=== PATIENT | male | born 1990 | race Caucasian/White ===

== ENCOUNTER 2020-12-09 18:15 | Emergency (ER) | payer OTHER, SELFPAY ==
[2020-12-09 18:43] LABS: Urine Blood Negative (Negative); Urine Glucose Negative (Negative); Urine Protein Negative (Negative); Urine pH 6.5 (5.0-7.0)
[2020-12-09 19:02] LABS: Absolute Lymphocytes (CBC) 3.1 K/uL (0.7-4.9); Basophils % 0.4 % (0-1.3); Hematocrit 43.9 % (39.6-49.0); Lymphocytes % 33.6 % (15.3-44.8); RBC Red Blood Cell Count 5.15 M/uL (4.33-5.43)
[2020-12-09 19:22] LABS: Albumin 4.7 g/dL (3.4-5.0); Bilirubin Direct 0.1 mg/dL (0-0.2); Bilirubin Total 0.5 mg/dL (0.2-1.0); Potassium 3.3 mmol/L (3.5-5.1); Protein, Total 8.5 g/dL (6.4-8.2)
[2020-12-09] MEDS ORDERED: ONDANSETRON 4 MG/2 ML VIAL ONE (19:25)
[2020-12-09] MEDS ORDERED: MORPHINE 4 MG/ML SYR ONE (19:25)
[2020-12-09 19:51] LABS: Urine Bacteria <20 /HPF (NONE SEEN); Urine RBC <5 /HPF (NONE SEEN)
--- NOTE | 2020-12-09 23:25 | ER ---
[facility] Name: Nicolas Moreno Age: 30 yrs Sex: Male : 1990 Arrival Date: 12/09/2020 Time: 18:19 Bed 25 Private MD: Diagnosis: Right lower quadrant abdominal tenderness Presentation: 12/09 18:25 Chief complaint: Patient states: RLQ abdominal pain x 4 days. Pt stated its worse with kg urination. Denies any N/V/D. Coronavirus screen: Vaccine status: Patient reports receiving the 2nd dose of the covid vaccine. Date October 30, 2020 Moderna Patient reports receiving the 1st dose of the Covid vaccine. Date October 09, 2020 Modern. Coronavirus screen: At this time, the client does not indicate any symptoms associated with coronavirus-19. Ebola Screen: Patient negative for fever greater than or equal to 101.5 degrees Fahrenheit, and additional compatible Ebola Virus Disease symptoms Patient denies exposure to infectious person. Patient denies travel to an Ebola-affected area in the 21 days before illness onset. Initial Sepsis Screen: Does the patient meet any 2 criteria? No. Patient's initial sepsis screen is negative. Does the patient have a suspected source of infection? No. Patient's initial sepsis screen is negative. Risk Assessment: Do you want to hurt yourself or someone else? Patient reports no desire to harm self or others. Onset of symptoms was December 05, 2020. 18:25 Method Of Arrival: Ambulatory kg 18:25 Acuity: GIANNA 3 kg Triage Assessment: 18:28 General: Appears in no apparent distress. Behavior is calm, cooperative, appropriate kg for age, quiet. Pain: Complains of pain in right lower quadrant Pain currently is 2 out of 10 on a pain scale. at worst was 6 out of 10 on a pain scale. level that patient reports is acceptable is 3 out of 10 on a pain scale. Quality of pain is described as aching, stabbing. GI: Reports lower abdominal pain. : Reports pain. Historical: - Allergies: 18:28 No Known Allergies; kg - Home Meds: 18:28 None [Active]; kg - PMHx: 18:28 None; kg - PSHx: 18:28 None; kg - Immunization history:: Adult Immunizations up to date, Client reports receiving the 2nd dose of the Covid vaccine, Date received: October 30, 2020 [facility] Client reports receiving the 1st dose of the Covid vaccine, October 09, 2020 [facility]. - Social history:: Smoking status: Patient denies any tobacco usage or history of. Screenin:46 Abuse screen: Denies threats or abuse. Nutritional screening: No deficits noted. oh Tuberculosis screening: No symptoms or risk factors identified. Fall Risk None identified. Assessment: 18:45 General: Appears comfortable, Behavior is calm, cooperative, appropriate for age, oh Reports RLQ abdominal pain, denies n/v. GI: Bowel sounds present X 4 quads. Abd is soft Reports lower abdominal pain. Vital Signs: 18:25 BP 148 / 97; Pulse 91; Resp 18; Temp 99.0(O); Pulse Ox 100% on R/A; Weight 73.94 kg kg (R); Height 5 ft. 11 in. (180.34 cm) (R); Pain 2/10; 18:46 BP 149 / 99; Pulse 99; Resp 19; Pulse Ox 99% ; oh 18:25 Body Mass Index 22.73 (73.94 kg, 180.34 cm) kg ED Course: 18:19 Patient arrived in ED. mr 18:27 Triage completed. kg 18:35 Manuel Reynoso PA is PHCP. jr8 18:35 Rafa Nunez MD is Attending Physician. jr8 18:36 Rebecca Smart, YOUNG is Primary Nurse. oh 18:46 Bed in low position. Call light in reach. oh 18:46 Arm band placed on right wrist. oh 18:49 Inserted saline lock: 20 gauge in left antecubital area, using aseptic technique. Blood oh collected. 19:07 Urine Microscopic Only Sent. oh 22:24 CT Abd/Pelvis - PO and IV Contrast In Process Unspecified. EDMS Administered Medications: 19:02 Drug: Zofran (Ondansetron) 4 mg Route: IVP; Site: left antecubital; oh 19:11 Not Given (Patient Refused): morphine 4 mg IVP once; RASS on ADMIN: Combtv4, Very cw2 Agttd3, Agttd2, Rstlss1, AlertClm0, Drwsy-1, Lt Sdtn-2, Mod Sdtn-3, Dp Sdtn-4, UnArsble-5 Outcome: 23:25 Discharge ordered by MD. allison 12/10 00:37 Patient left the ED. cw2 Signatures: Dispatcher [employer] ALEXIA Nia Gong mr AngelesManuel PA PA jr8 Danyelle Ford, RN RN Jc Gross RN RN cw2 Rebecca Smart RN RN oh Corrections: (The following items were deleted from the chart) 12/09 19:04 19:02 morphine 4 mg IVP in left antecubital oh oh
--- NOTE | 2020-12-09 23:26 | EDPHYS ---
Physician Documentation [facility] Name: Nicolas Moreno Age: 30 yrs Sex: Male : 1990 Arrival Date: 12/09/2020 Time: 18:19 Bed 25 Private MD: ED Physician Rafa Nunez HPI: 12/09 18:58 This 30 yrs old Male presents to ER via Ambulatory with complaints of jr8 Abdominal Pain. 19:08 The patient presents with abdominal pain right lower quadrant. Onset: The jr8 symptoms/episode began/occurred acutely, today. The symptoms do not radiate. Associated signs and symptoms: none. The symptoms are described as stabbing. Modifying factors: The symptoms are alleviated by nothing, the symptoms are aggravated by nothing. Severity of pain: At its worst the pain was moderate in the emergency department the pain is unchanged. The patient has not experienced similar symptoms in the past. The patient has not recently seen a physician. Historical: - Allergies: 18:28 No Known Allergies; kg - Home Meds: 18:28 None [Active]; kg - PMHx: 18:28 None; kg - PSHx: 18:28 None; kg - Immunization history:: Adult Immunizations up to date, Client reports receiving the 2nd dose of the Covid vaccine, Date received: October 30, 2020 [facility] Client reports receiving the 1st dose of the Covid vaccine, October 09, 2020 [facility]. - Social history:: Smoking status: Patient denies any tobacco usage or history of. ROS: 19:08 Eyes: Negative for injury, pain, redness, and discharge, ENT: Negative for injury, jr8 pain, and discharge, Neck: Negative for injury, pain, and swelling, Cardiovascular: Negative for chest pain, palpitations, and edema, Respiratory: Negative for shortness of breath, cough, wheezing, and pleuritic chest pain, Back: Negative for injury and pain, MS/Extremity: Negative for injury and deformity, Skin: Negative for injury, rash, and discoloration, Neuro: Negative for headache, weakness, numbness, tingling, and seizure. 19:08 Abdomen/GI: Positive for abdominal pain, Negative for nausea, vomiting, and diarrhea. Exam: 19:08 Constitutional: This is a well developed, well nourished patient who is awake, alert, jr8 and in no acute distress. Cardiovascular: Regular rate and rhythm with a normal S1 and S2. No gallops, murmurs, or rubs. Normal PMI, no JVD. No pulse deficits. Respiratory: Lungs have equal breath sounds bilaterally, clear to auscultation and percussion. No rales, rhonchi or wheezes noted. No increased work of breathing, no retractions or nasal flaring. Back: No spinal tenderness. No costovertebral tenderness. Full range of motion. Skin: Warm, dry with normal turgor. Normal color with no rashes, no lesions, and no evidence of cellulitis. MS/ Extremity: Pulses equal, no cyanosis. Neurovascular intact. Full, normal range of motion. Neuro: Awake and alert, GCS 15, oriented to person, place, time, and situation. Cranial nerves II-XII grossly intact. Motor strength 5/5 in all extremities. Sensory grossly intact. 19:08 Abdomen/GI: Inspection: abdomen appears normal, Bowel sounds: active, all quadrants, Palpation: soft, in all quadrants, moderate abdominal tenderness, in the right lower quadrant, mass, is not appreciated, rebound tenderness, is not appreciated, voluntary guarding, is not appreciated, involuntary guarding, is not appreciated, no appreciated organomegaly, Indicators: McBurney's point is tender, Ruiz's sign is negative, Rovsing's sign is negative, Obturator sign is negative, Psoas sign is negative, Liver: tenderness, is not appreciated. Vital Signs: 18:25 BP 148 / 97; Pulse 91; Resp 18; Temp 99.0(O); Pulse Ox 100% on R/A; Weight 73.94 kg kg (R); Height 5 ft. 11 in. (180.34 cm) (R); Pain 2/10; 18:46 BP 149 / 99; Pulse 99; Resp 19; Pulse Ox 99% ; oh 18:25 Body Mass Index 22.73 (73.94 kg, 180.34 cm) kg MDM: 18:35 Patient medically screened. jr8 23:24 Data reviewed: vital signs, nurses notes, lab test result(s), radiologic studies, CT jr8 scan. Data interpreted: Pulse oximetry: on room air is 99 %. Interpretation: normal. Counseling: I had a detailed discussion with the patient and/or guardian regarding: the historical points, exam findings, and any diagnostic results supporting the discharge/admit diagnosis, lab results, radiology results, the need for outpatient follow up, a family practitioner, to return to the emergency department if symptoms worsen or persist or if there are any questions or concerns that arise at home. Special discussion: Based on the patient's Hx, exam, and Dx evaluation, there is no indication for emergent surgery or inpatient Tx. It is understood by the patient/guardian that if the Sx's persist or worsen they need to return immediately for re-evaluation. 12/09 18:35 Order name: Basic Metabolic Panel; Complete Time: 20:05 12/09 18:35 Order name: CBC with Diff; Complete Time: 19:12/09 18:35 Order name: Hepatic Function; Complete Time: 20:12/09 18:35 Order name: Lipase; Complete Time: 20:12/09 18:35 Order name: Urine Microscopic Only; Complete Time: 20: [facility] 12/09 18:42 Order name: Urine Dipstick-Ancillary; Complete Time: 18:49 EDTX 12/09 18:35 Order name: IV Saline Lock; Complete Time: 19:12/09 18:35 Order name: Labs collected and sent; Complete Time: 19:12/09 18:35 Order name: Urine Dipstick-Ancillary (obtain specimen); Complete Time: 18:44 8 12/09 18:54 Order name: CT Abd/Pelvis - PO and IV Contrast jr8 Administered Medications: 19:02 Drug: Zofran (Ondansetron) 4 mg Route: IVP; Site: left antecubital; oh 19:11 Not Given (Patient Refused): morphine 4 mg IVP once; RASS on ADMIN: Combtv4, Very cw2 Agttd3, Agttd2, Rstlss1, AlertClm0, Drwsy-1, Lt Sdtn-2, Mod Sdtn-3, Dp Sdtn-4, UnArsble-5 Disposition: 12/10 11:18 Co-signature as Attending Physician, Rafa Nunez MD I agree with the assessment and kdr plan of care. Disposition Summary: 12/09/20 23:25 Discharge Ordered Location: Home jr8 Problem: new jr8 Symptoms: have improved jr8 Condition: Stable jr8 Diagnosis - Right lower quadrant abdominal tenderness jr8 Followup: jr8 - With: Private Physician - When: 2 - 3 days - Reason: Recheck today's complaints, Continuance of care, Re-evaluation by your physician Discharge Instructions: - Discharge Summary Sheet jr8 - Abdominal Pain, Adult jr8 Forms: - Medication Reconciliation Form jr8 - Thank You Letter jr8 - Antibiotic Education jr8 - Prescription Opioid Use jr8 Prescriptions: - Zofran 4 mg Oral Tablet - take 1 tablet by ORAL route every 12 hours As needed; 20 tablet; Refills: 0, jr8 Product Selection Permitted - dicyclomine 10 mg Oral Capsule - take 1 capsule by ORAL route 3 times per day As needed; 20 capsule; Refills: 0, jr8 Product Selection Permitted Signatures: Dispatcher [employer] Rafa Parish MD MD kdr Roszak, Josh, PA PA jr8 Danyelle Ford RN RN Rebecca Smart RN RN ma Jc Shabazz RN cw2
[2020-12-10 00:47] VITALS: TEMP 99
[2020-12-10 00:48] VITALS: BP 149/99; O2SAT 99
--- NOTE | 2020-12-10 11:34 | RAD REPORT ---
EXAM DESCRIPTION: CT - Abdomen Pelvis W Contrast - 12/10/2020 6:27 am CLINICAL HISTORY: 30 years Male r/o appy; Abd pain TECHNIQUE: Contiguous axial images obtained through the abdomen and pelvis following both oral and i ntravenous contrast administration. Coronal and sagittal reformatted images provided. This CT exam was performed according to our departmental dose-optimization program, which includes on e or more of the following dose reduction techniques: automated exposure control, adjustment of the m A and/or kV according to patient size, and/or use of iterative reconstruction technique. COMPARISON: No prior exams provided for comparison. FINDINGS: The appendix is normal. There is no bowel inflammation, obstruction, free intraperitoneal air, or ascites. Minimal bibasilar atelectasis. The liver, biliary tree, gallbladder, pancreas, spleen, adrenal glands , kidneys, urinary bladder, and osseous structures are unremarkable. IMPRESSION: Normal appendix. No acute abdominal or pelvic abnormalities. Electronically signed by: Heidi Waldrop MD 12/09/2020 10:40 PM CDT Due to temporary technical issues with the PACS/Fluency reporting system, reports are being signed by the in house radiologist without review as a courtesy to ensure prompt reporting. The interpreting r adiologist is fully responsible for the content of the report.
== END 2020-12-10 00:37 | disposition home or self-care (01) ==
LOC: ER 18:15
DX: R10.813 Right lower quadrant abdominal tenderness (principal)
CPT/HCPCS: 85025; 80048; 36415; 80076; 83690; 74177; 96374; 99284; Q9967; J2405; 81003; 81015